=== PATIENT | female | born 1995 | race African-American/Black ===

== ENCOUNTER 2018-03-06 19:32 | Emergency (ER) | payer OTHER ==
[2018-03-06 20:23] LABS: #Eosinphils 0.2 thou/uL (0.0-0.7); #Lymphocytes 1.7 thou/uL (1.20-3.40); #Monocytes 0.5 thou/uL (0.11-0.59); #Neutrophils 2.1 thou/uL (1.40-6.50); %Basophils 0.8 % (0.0-1.0); %Eosinophils 3.6 % (0.0-10.0); %Monocytes 10.4 % (0.0-10.0); %Neutrophils 47.3 % (42.0-75.0); Hemoglobin 12.1 g/dL (12.0-16.0); Mean Corpuscular HGB CONC 32.9 g/dL (32.0-36.0); Mean Corpuscular Hemoglobin 26.4 pg (27.0-31.0); Mean Corpuscular Volume 80.1 fl (81.0-99.0); Mean Platelet Volume 8.4 fL (7.4-10.4); Platelet Count 283 thou/uL (130-400); RBC Distribution Width 13.2 % (11.5-14.5); White Blood Cell (WBC) Count 4.4 thou/uL (4.8-10.8)
[2018-03-06 20:31] LABS: BHCG - Serum Negative (NEGATIVE); Pregs Control Background? CLEAR/WHITE (CLR/WHITE); Pregs Control Bar Appear? YES (CONTROL BAR)
[2018-03-06 20:31] LABS: Bilirubin Negative (Negative); Blood, Urine Moderate (Negative); Clarity CLEAR (Clear); Glucose, Urine (Dipstick) Negative (Negative); Leukocyte Small (Negative); Nitrite Negative (Negative); Protein, Urine (Dipstick) Negative (Neg-Trace); Specific Gravity, Urine 1.021 (1.002-1.036)
[2018-03-06 20:33] LABS: Bacteria/HPF None Seen HPF (None Seen); Hyaline Casts/LPF 4-6 HYALINE CAST LPF (0-3 Hyaline); Pathc Cast-AUWi Flag 0.72 (0-2.49); RBC/HPF 0-3 HPF (0-3)
== END 2018-03-06 21:01 | disposition home or self-care (01) ==
LOC: ERS 19:32
DX: M54.5 Low back pain (principal); I45.10 Unspecified right bundle-branch block; I49.9 Cardiac arrhythmia, unspecified; F41.9 Anxiety disorder, unspecified; F31.9 Bipolar disorder, unspecified
CPT/HCPCS: 36415; 81003; 81015; 84703; 85025; 99283

== ENCOUNTER 2018-05-09 10:25 | Emergency (ER) | payer SELFPAY ==
[2018-05-09 10:56] LABS: Bacteria/HPF 3+ HPF (None Seen); Pathc Cast-AUWi Flag 1.16 (0-2.49)
[2018-05-09 10:57] LABS: Bilirubin Negative (Negative); Blood, Urine Negative (Negative); Glucose, Urine (Dipstick) Negative (Negative); Leukocyte Moderate (Negative); Nitrite Positive (Negative); Protein, Urine (Dipstick) Negative (Neg-Trace); Urobilinogen 0.2 mg/dL (0.2-1.0)
[2018-05-09 10:59] LABS: Clarity Hazy (Clear)
[2018-05-09 11:02] LABS: #Eosinphils 0.1 thou/uL (0.0-0.7); #Lymphocytes 1.6 thou/uL (1.20-3.40); #Monocytes 0.3 thou/uL (0.11-0.59); #Neutrophils 2.2 thou/uL (1.40-6.50); %Basophils 0.3 % (0.0-1.0); %Eosinophils 3.2 % (0.0-10.0); %Lymphocytes 37.8 % (21.0-51.0); %Monocytes 7.5 % (0.0-10.0); %Neutrophils 51.2 % (42.0-75.0); Hemoglobin 12.1 g/dL (12.0-16.0); Mean Corpuscular HGB CONC 32.8 g/dL (32.0-36.0); Mean Corpuscular Hemoglobin 26.6 pg (27.0-31.0); Mean Corpuscular Volume 81.3 fL (78.0-98.0); Mean Platelet Volume 8.5 fL (7.4-10.4); Platelet Count 248 thou/uL (130-400); RBC Distribution Width 13.1 % (11.5-14.5); Red Blood Cell (RBC) Count 4.53 mill/uL (4.20-5.40); White Blood Cell (WBC) Count 4.2 thou/uL (4.8-10.8)
[2018-05-09 11:03] LABS: Pregnancy Test - Urine (BHCG) Negative (Negative); Pregu Control Background? CLEAR/WHITE (CLR/WHITE); Pregu Control Bar Appear? YES (CONTROL BAR)
[2018-05-09 11:13] LABS: Hyaline Casts/LPF 0-3 HYALINE CAST LPF (0-3 Hyaline)
[2018-05-09 11:14] LABS: Trichomonas/HPF 1+ HPF (None Seen)
[2018-05-09 11:15] LABS: Squamous Epithelial 21-50 HPF (0-3)
[2018-05-09 11:23] LABS: ALT (SGPT) 10 U/L (8-55); AST (SGOT) 15 U/L (5-34); Albumin 4.4 g/dL (3.5-5.0); Alkaline Phosphatase 91 U/L (40-150); Anion Gap 6 mmol/L (10-20); BUN (Urea Nitrogen) 8 mg/dL (7.0-18.7); Bilirubin, Total 1.2 mg/dL (0.2-1.2); Calc. Creatinine Clearance 0 mL/min (70-130); Calcium 9.4 mg/dL (7.8-10.44); Carbon Dioxide 31 mmol/L (22-29); Chloride 105 mmol/L (98-107); Estimated GFR-MDRD Greater than 90; Globulin 3.7 g/dL (2.4-3.5); Glucose 103 mg/dL (70-105); Lipase 18 U/L (8-78); Potassium 3.6 mmol/L (3.5-5.1); Protein, Total 8.1 g/dL (6.0-8.3); Sodium 138 mmol/L (136-145)
[2018-05-09] MEDS ORDERED: cefTRIAXone\\ROCEPHIN 250 MG VIAL ONE (12:24)
[2018-05-09] MEDS ORDERED: Azithromycin 250 MG TAB ONE (12:24)
[2018-05-09] MEDS ORDERED: Lidocaine 1% PF 5 ML VIAL ONE (12:24)
[2018-05-09] MEDS ORDERED: Ketorolac Tromethamine 60 MG/2 ML VIAL ONE (12:52)
[2018-05-10 19:59] LABS: Chlamydia by PCR Not Detected (NotDetected); GC by PCR Not Detected (NotDetected)
== END 2018-05-09 12:59 | disposition home or self-care (01) ==
LOC: ERS 10:25
DX: N73.9 Female pelvic inflammatory disease, unspecified (principal); N30.00 Acute cystitis without hematuria; F41.9 Anxiety disorder, unspecified; F31.9 Bipolar disorder, unspecified; I49.9 Cardiac arrhythmia, unspecified; I45.10 Unspecified right bundle-branch block
CPT/HCPCS: 36415; 80053; 81003; 81015; 81025; 83690; 85025; 87480; 87491; 87510; 87591; 87660; 96372; J0696; J1885; J2001

== ENCOUNTER 2018-06-23 12:31 | Emergency (ER) | payer SELFPAY ==
[2018-06-23 13:11] LABS: Bilirubin Negative (Negative); Blood, Urine Negative (Negative); Clarity CLOUDY (Clear); Glucose, Urine (Dipstick) Negative (Negative); Leukocyte Small (Negative); Nitrite Negative (Negative); Protein, Urine (Dipstick) Negative (Neg-Trace); Specific Gravity, Urine 1.017 (1.002-1.036)
[2018-06-23 13:13] LABS: Pregnancy Test - Urine (BHCG) Negative (Negative); Pregu Control Background? CLEAR/WHITE (CLR/WHITE); Pregu Control Bar Appear? YES (CONTROL BAR); Specific Gravity 1.017 (1.002-1.036)
[2018-06-23 13:14] LABS: Bacteria/HPF None Seen HPF (None Seen); Pathc Cast-AUWi Flag 2.18 (0-2.49)
[2018-06-23 13:25] LABS: Hyaline Casts/LPF 0-3 HYALINE CAST LPF (0-3 Hyaline); Trichomonas/HPF 1+ HPF (None Seen)
[2018-06-23 13:39] LABS: #Basophils 0.1 thou/uL (0.0-0.2); #Eosinphils 0.1 thou/uL (0.0-0.7); #Lymphocytes 1.7 thou/uL (1.20-3.40); #Monocytes 0.4 thou/uL (0.11-0.59); #Neutrophils 1.9 thou/uL (1.40-6.50); %Basophils 1.4 % (0.0-1.0); %Eosinophils 3.2 % (0.0-10.0); %Monocytes 8.6 % (0.0-10.0); %Neutrophils 45.9 % (42.0-75.0); Hemoglobin 12.8 g/dL (12.0-16.0); Mean Corpuscular HGB CONC 32.4 g/dL (32.0-36.0); Mean Corpuscular Hemoglobin 26.9 pg (27.0-31.0); Mean Platelet Volume 8.6 fL (7.4-10.4); Platelet Count 311 thou/uL (130-400); RBC Distribution Width 12.8 % (11.5-14.5); Red Blood Cell (RBC) Count 4.74 mill/uL (4.20-5.40); White Blood Cell (WBC) Count 4.2 thou/uL (4.8-10.8)
[2018-06-23 14:13] LABS: ALT (SGPT) 10 U/L (8-55); AST (SGOT) 15 U/L (5-34); Albumin 4.5 g/dL (3.5-5.0); Alkaline Phosphatase 87 U/L (40-150); Anion Gap 11 mmol/L (10-20); BUN (Urea Nitrogen) 4 mg/dL (7.0-18.7); Bilirubin, Total 1.5 mg/dL (0.2-1.2); Calc. Creatinine Clearance 0 mL/min (70-130); Calcium 9.5 mg/dL (7.8-10.44); Carbon Dioxide 26 mmol/L (22-29); Chloride 106 mmol/L (98-107); Estimated GFR-MDRD Greater than 90; Globulin 3.8 g/dL (2.4-3.5); Glucose 95 mg/dL (70-105); Lipase 14 U/L (8-78); Potassium 3.9 mmol/L (3.5-5.1); Protein, Total 8.3 g/dL (6.0-8.3); Sodium 139 mmol/L (136-145)
[2018-06-23] MEDS ORDERED: Lidocaine 1% PF 5 ML VIAL ONE (14:41)
[2018-06-23] MEDS ORDERED: Ondansetron ODT 8 MG TAB ONE ×2 (14:41→14:46)
[2018-06-23] MEDS ORDERED: cefTRIAXone\\ROCEPHIN 250 MG VIAL ONE (14:41)
[2018-06-23] MEDS ORDERED: metroNIDAZOLE 250 MG TAB ONE (14:49)
[2018-06-23] MEDS ORDERED: Azithromycin 250 MG TAB ONE (15:00)
[2018-06-26 19:35] LABS: Chlamydia by PCR Not Detected (NotDetected); GC by PCR Not Detected (NotDetected)
== END 2018-06-23 16:20 | disposition home or self-care (01) ==
LOC: ERS 12:31
DX: A59.9 Trichomoniasis, unspecified (principal); F41.9 Anxiety disorder, unspecified; F31.9 Bipolar disorder, unspecified
CPT/HCPCS: 36415; 80053; 81003; 81015; 81025; 83690; 85025; 87480; 87491; 87510; 87591; 87660; 96372; J0696; J2001

== ENCOUNTER 2018-07-02 15:47 | Emergency (ER) | payer OTHER, SELFPAY ==
[2018-07-02 16:48] LABS: #Lymphocytes 1.4 thou/uL (1.20-3.40); #Monocytes 0.3 thou/uL (0.11-0.59); #Neutrophils 3.6 thou/uL (1.40-6.50); %Basophils 0.9 % (0.0-1.0); %Eosinophils 0.4 % (0.0-10.0); %Lymphocytes 26.5 % (21.0-51.0); %Monocytes 5.5 % (0.0-10.0); %Neutrophils 66.7 % (42.0-75.0); Hemoglobin 13.2 g/dL (12.0-16.0); Mean Corpuscular HGB CONC 32.2 g/dL (32.0-36.0); Mean Corpuscular Hemoglobin 26.4 pg (27.0-31.0); Mean Platelet Volume 8.9 fL (7.4-10.4); Platelet Count 274 thou/uL (130-400); RBC Distribution Width 12.8 % (11.5-14.5); Red Blood Cell (RBC) Count 5.01 mill/uL (4.20-5.40); White Blood Cell (WBC) Count 5.4 thou/uL (4.8-10.8)
[2018-07-02 18:07] LABS: Bilirubin Negative (Negative); Blood, Urine Negative (Negative); Clarity CLOUDY (Clear); Glucose, Urine (Dipstick) Negative (Negative); Leukocyte Negative (Negative); Nitrite Negative (Negative); Protein, Urine (Dipstick) Negative (Neg-Trace); Specific Gravity, Urine 1.018 (1.002-1.036); Urobilinogen 0.2 mg/dL (0.2-1.0); pH, Urine 5.5 (5.0-9.0)
[2018-07-02 20:10] LABS: Pregnancy Test - Urine (BHCG) Negative (Negative); Pregu Control Background? CLEAR/WHITE (CLR/WHITE); Pregu Control Bar Appear? YES (CONTROL BAR); Specific Gravity 1.018 (1.002-1.036)
== END 2018-07-02 20:49 | disposition home or self-care (01) ==
LOC: ERS 15:47
DX: R53.83 Other fatigue (principal)
CPT/HCPCS: 36415; 81003; 81025; 85025; 99284

== ENCOUNTER 2018-11-14 00:38 | Emergency (ER) | payer MEDICAID, OTHER ==
[2018-11-14 01:19] LABS: Pregnancy Test - Urine (BHCG) Negative (Negative); Pregu Control Background? CLEAR/WHITE (CLR/WHITE); Pregu Control Bar Appear? YES (CONTROL BAR); Specific Gravity 1.005 (1.002-1.036)
[2018-11-14 01:27] LABS: Amphetamine Not Detected (NotDetected); Barbiturates Screen Not Detected (NotDetected); Benzodiazepine Screen Not Detected (NotDetected); Bilirubin Negative (Negative); Blood, Urine Trace (Negative); Clarity CLEAR (Clear); Cocaine Metabolite Screen Not Detected (NotDetected); Glucose, Urine (Dipstick) Negative (Negative); Leukocyte Small (Negative); Medtox Control Line Valid? VALID (VALID); Medtox Reader # READER 4; Methadone Not Detected (NotDetected); Methamphetamine Not Detected (NotDetected); Nitrite Positive (Negative); Opiate Screen Not Detected (NotDetected); Oxycodone Screen Not Detected (NotDetected); Phencyclidine (PCP) Not Detected (NotDetected); Protein, Urine (Dipstick) Negative (Neg-Trace); Specific Gravity, Urine 1.003 (1.002-1.036); THC/Cannabinoid Screen Not Detected (NotDetected); Tricyclic Screen Not Detected (NotDetected); Urobilinogen 0.2 mg/dL (0.2-1.0)
[2018-11-14 01:30] LABS: Bacteria/HPF 2+ HPF (None Seen); Hyaline Casts/LPF 0-3 HYALINE CAST LPF (0-3 Hyaline); RBC/HPF 0-3 HPF (0-3); Squamous Epithelial 0-3 HPF (0-3)
[2018-11-14 01:31] LABS: Acetaminophen Less than 6.0 mcg/mL (10.0-30.0); Alcohol 109 mg/dL (Less than 10); Salicylate Less than 8.0 mg/dL (15.0-30.0)
--- NOTE | 2018-11-14 09:37 | RAD ---
FRONTAL VIEW CHEST: Date: 11/14/18 COMPARISON: 01/14/17. INDICATION: Dyspnea. FINDINGS: Lungs are clear. No effusion or pneumothorax. Cardiac silhouette and osseous structures are unremarka ble. IMPRESSION: No focal consolidation. POS: C
== END 2018-11-14 02:05 | disposition home or self-care (01) ==
LOC: ERS 00:38
DX: R06.02 Shortness of breath (principal); F10.129 Alcohol abuse with intoxication, unspecified; Y90.5 Blood alcohol level of 100-119 mg/100 ml; F31.9 Bipolar disorder, unspecified; F41.9 Anxiety disorder, unspecified
CPT/HCPCS: 36415; 71045; 80306; 80307; 81003; 81015; 81025; 93005

== ENCOUNTER 2019-04-18 10:01 | Emergency (ER) | payer OTHER ==
[2019-04-18] MEDS ORDERED: Ondansetron PF 4 MG/2 ML Vial ONE (11:18)
[2019-04-18 11:40] LABS: Anion Gap 15 mmol/L (10-20); BUN (Urea Nitrogen) 7 mg/dL (7.0-18.7); Calc. Creatinine Clearance 0 mL/min (70-130); Calcium 10.3 mg/dL (7.8-10.44); Carbon Dioxide 22 mmol/L (22-29); Chloride 102 mmol/L (98-107); Estimated GFR-MDRD Greater than 90; Glucose 84 mg/dL (70-105); Potassium 4.2 mmol/L (3.5-5.1); Sodium 135 mmol/L (136-145)
[2019-04-18 12:01] LABS: #Eosinphils 0.1 thou/uL (0.0-0.7); #Lymphocytes 1.5 thou/uL (1.20-3.40); #Monocytes 0.4 thou/uL (0.11-0.59); #Neutrophils 3.5 thou/uL (1.40-6.50); %Basophils 0.6 % (0.0-1.0); %Eosinophils 1.2 % (0.0-10.0); %Lymphocytes 26.4 % (21.0-51.0); %Monocytes 7.5 % (0.0-10.0); %Neutrophils 64.4 % (42.0-75.0); Hemoglobin 11.4 g/dL (12.0-16.0); Mean Corpuscular HGB CONC 32.1 g/dL (32.0-36.0); Mean Corpuscular Hemoglobin 26.3 pg (27.0-31.0); Mean Platelet Volume 8.6 fL (7.4-10.4); Platelet Count 255 thou/uL (130-400); RBC Distribution Width 13.1 % (11.5-14.5); Red Blood Cell (RBC) Count 4.34 mill/uL (4.20-5.40); White Blood Cell (WBC) Count 5.5 thou/uL (4.8-10.8)
[2019-04-18 13:13] LABS: Bacteria/HPF 3+ HPF (None Seen); Bilirubin Negative (Negative); Blood, Urine 1+ (Negative); Clarity Turbid (Clear); Glucose, Urine (Dipstick) Normal (Negative); Leukocyte 250 Leu/uL (Negative); Nitrite 2+ (Negative); Protein, Urine (Dipstick) 10 mg/dL (Neg-Trace); Squamous Epithelial 0-3 HPF (0-3); WBC/HPF 21-50 HPF (0-3)
== END 2019-04-18 15:10 | disposition home or self-care (01) ==
LOC: ERS 10:01
DX: O23.41 Unspecified infection of urinary tract in pregnancy, first trimester (principal); O21.9 Vomiting of pregnancy, unspecified; F31.9 Bipolar disorder, unspecified; F41.9 Anxiety disorder, unspecified; Z3A.01 Less than 8 weeks gestation of pregnancy
CPT/HCPCS: 36415; 80048; 81003; 81015; 85025; 87077; 87086; 87186; 96361; 96374; J2405

== ENCOUNTER 2019-06-19 15:14 | Emergency (ER) | payer OTHER ==
[2019-06-19] MEDS ORDERED: Ondansetron PF 4 MG/2 ML Vial ONE (16:11)
[2019-06-19] MEDS ORDERED: cefTRIAXone\\ROCEPHIN 1 GM VIAL ONE (16:14)
[2019-06-19 16:15] LABS: Hemoglobin 11.3 g/dL (12.0-16.0); Mean Corpuscular HGB CONC 34.5 g/dL (32.0-36.0); Mean Corpuscular Hemoglobin 27.8 pg (27.0-31.0); Mean Corpuscular Volume 80.7 fL (78.0-98.0); Mean Platelet Volume 8.9 fL (7.4-10.4); Platelet Count 219 thou/uL (130-400); Red Blood Cell (RBC) Count 4.04 mill/uL (4.20-5.40); White Blood Cell (WBC) Count 7.2 thou/uL (4.8-10.8)
[2019-06-19 16:29] LABS: Band 16 % (5-11); Lymphocytes 11 % (21-51); MDiff Complete? YES; Monocytes 10 % (0-10); Neutrophil 62 % (42-75); Platelet Morphology Comment Appears Adequate; RBC Morphology Normal; Reactive Lymphocytes 1 % (0-10)
[2019-06-19 16:37] LABS: ALT (SGPT) 12 U/L (8-55); AST (SGOT) 20 U/L (5-34); Albumin 3.8 g/dL (3.5-5.0); Alkaline Phosphatase 77 U/L (40-150); Anion Gap 15 mmol/L (10-20); BUN (Urea Nitrogen) 8 mg/dL (7.0-18.7); Bilirubin, Total 1.9 mg/dL (0.2-1.2); Calc. Creatinine Clearance 0 mL/min (70-130); Calcium 9.9 mg/dL (7.8-10.44); Carbon Dioxide 21 mmol/L (22-29); Chloride 98 mmol/L (98-107); Estimated GFR-MDRD Greater than 90; Globulin 4.7 g/dL (2.4-3.5); Glucose 83 mg/dL (70-105); Potassium 3.3 mmol/L (3.5-5.1); Protein, Total 8.5 g/dL (6.0-8.3); Sodium 131 mmol/L (136-145)
== END 2019-06-19 19:08 | disposition home or self-care (01) ==
LOC: ERS 15:14
DX: O99.512 Diseases of the respiratory system complicating pregnancy, second trimester (principal); O21.9 Vomiting of pregnancy, unspecified; J02.0 Streptococcal pharyngitis; O99.89 Other specified diseases and conditions complicating pregnancy, childbirth and the puerperium; B30.9 Viral conjunctivitis, unspecified; F31.9 Bipolar disorder, unspecified; F41.9 Anxiety disorder, unspecified; Z79.899 Other long term (current) drug therapy; Z3A.16 16 weeks gestation of pregnancy
CPT/HCPCS: 80053; 85025; 93005; 96361; 96365; 96375; J0696; J2405

== ENCOUNTER → 2019-09-15 | Day surgery (SDC) | payer OTHER ==
[~2019-09-15] MED LIST: hydrALAZINE 20 MG/ML VIAL SLOW IVP PRN
[2019-09-15 21:15] VITALS: BP 102/62; TEMP 98.3; BMI 22.1
--- NOTE | 2019-09-15 22:00 | PDOC.EVN ---
Event Note - Event Note Event Note: At bedside now. Q&A done with patient. Last delivery was at 34 weeks; 2014. Not on progesterone by her HX 102/62 83 afebrile Sono in process...awaiting transducer probe arrival for CX length
--- NOTE | 2019-09-15 22:07 | PDOC.EVN ---
Event Note - Event Note Event Note: FFN collected by me just now pre vag sono in case CX is less than 2.5cm
--- NOTE | 2019-09-15 22:10 | PDOC.EVN ---
Event Note - Event Note Event Note: CX transvag is without funneling, no shortening seen...3.2cm TCL. FFN not needed. I was present for the [facility] [place] for outpatient care Clinically stable.
--- NOTE | 2019-09-15 22:25 | ULT ---
LIMITED OB ULTRASOUND: 09/15/19 INDICATIONS: Assess cervical length. FINDINGS/IMPRESSION: Position: Vertex. Placenta: Posterior. DIANDRA: 9.1 cm. heart rate: 153 beats per minute. Cervical length: 3.2 cm. No funneling. Cervix appears closed. POS: OFF
--- NOTE | 2019-09-16 07:18 | HP ---
TIME OF EVALUATION: 2129. LOCATION: Labor and Delivery. REASON FOR EVALUATION: Pelvic pressure at 27 weeks and 5 days. This is a patient of a physician at [facility]. HISTORY OF PRESENT ILLNESS: This is a G4, P3 at 27 weeks and 5 days with a due date of December 09 with a history of 1 labor in the past, who sees a physician in [facility]. She complains of vaginal pressure, but denies contractions or leakage of fluid or vaginal bleeding. She denies any recent trauma. REVIEW OF SYSTEMS: Complete review of systems was completed and is otherwise negative unless specified in the HPI. PAST MEDICAL HISTORY: Negative. ALLERGIES: PENICILLIN AND TRAMADOL. PAST SURGICAL HISTORY: Includes a LEEP. SOCIAL HISTORY: Negative for tobacco, alcohol, and drug use. PHYSICAL EXAMINATION: VITAL SIGNS: She is afebrile and normotensive. The patient's blood pressure is 102/62, and her temperature is 98.8, her pulse is 83. GENERAL: Clinically, she is in no acute distress. ABDOMEN: Soft and nontender. VAGINAL EXAM: Pending a transvaginal ultrasound for cervical length. There is no gross evidence of leakage or vaginal bleeding. MONITOR: heart tones are in the 130s to 140s and are reactive for gestational age. No contractions are seen on toco dynamometer. ASSESSMENT: This is a patient at 27 weeks and 3 days with vaginal pressure, but no real contractions. PLAN: 1. heart tones are reassuring for gestational age. 2. I will order a transvaginal ultrasound and we will do an FFN per protocol if the cervical length is less than 2.5. 3. Await transvaginal ultrasound. If it is normal (greater than 2.5 cm), we can discharge home with reassurance. Job ID: [id number]
== END | disposition home or self-care (01) ==
LOC: L&D/OP 20:32
PROVIDERS: ATTEND Obstetrics & Gynecology
DX: O99.89 Other specified diseases and conditions complicating pregnancy, childbirth and the puerperium (principal); R10.2 Pelvic and perineal pain; Z3A.27 27 weeks gestation of pregnancy; Z88.0 Allergy status to penicillin; Z88.5 Allergy status to narcotic agent
CPT/HCPCS: 76856; 99282

== ENCOUNTER 2019-09-27 06:35 | Day surgery (SDC) | payer OTHER ==
[2019-09-27 07:12] VITALS: BP 117/60; TEMP 98.2; BMI 22.3
[2019-09-27] MEDS ORDERED: hydrALAZINE 20 MG/ML VIAL SLOW IVP PRN (07:26)
[2019-09-27] MEDS ORDERED: Acetaminophen 500 MG TAB PO SCH (07:45)
--- NOTE | 2019-09-27 07:53 | HP ---
This is a patient of the [facility] physician. CHIEF COMPLAINT: Pelvic pressure at 29 weeks. HISTORY OF PRESENT ILLNESS: This is a 24-year-old G4, P3 with a history of 2 full-term deliveries and one (with last) who is currently not on progesterone, here for pelvic pressure. She denies vaginal bleeding or leakage of fluid. She has good movement. She was last seen on 09/15 with a transvaginal ultrasound performed showing a cervical length of 3.2 cm. REVIEW OF SYSTEMS: Complete review of systems was checked and is otherwise negative unless specified in the HPI. PAST MEDICAL HISTORY: Questionable heart palpitations but she does not see a communications lead. PAST SURGICAL HISTORY: Includes a LEEP. OBSTETRICS HISTORY: One prior , no history. MEDICATIONS: vitamin. ALLERGIES: PENICILLIN AND TRAMADOL. PHYSICAL EXAMINATION: VITAL SIGNS: She is afebrile and normotensive. GENERAL: She is in no acute distress. ABDOMEN: Soft and nontender. PELVIC: Currently deferred as we are waiting for a transvaginal ultrasound. There is no gross evidence of vaginal bleeding or leakage of fluid. monitor, heart tones are in the 130s to 140s and are compatible with a 29 week gestation, and there are no decelerations. There are no contractions on tocodynamometer. Interventions ordered. I have ordered a transvaginal ultrasound and a VPIII. I have also asked to collect a fibronectin, but we will not send until we get the transvaginal ultrasound report. ASSESSMENT: This is a 24-year-old G4, P3, at 29 weeks with pelvic pressure, not otherwise specified, whose last transvaginal ultrasound on 09/15 was 3.2 cm. PLAN: 1. Transvaginal ultrasound for cervical length will be ordered now. 2. If it is less than 2.5 cm, we will order FFN. 3. No overt evidence of labor at this time or rupture of membranes. 4. VPIII collected for routine evaluation. Job ID: [id number]
--- NOTE | 2019-09-27 08:05 | PDOC.EVN ---
Event Note - Event Note Event Note: Cx 3.6cm awaiting VP3
--- NOTE | 2019-09-27 08:37 | ULT ---
ULTRASOUND PELVIC TRANSVAGINAL: HISTORY: Evaluate cervical length. COMPARISON: None. FINDINGS: Real-time, piper scale, color Doppler, and spectral analysis of the pelvis performed transabdominal an d transvaginal approach. The cervix is closed and measures approximately 3.5 cm in length. The position is vertex. Placenta is posterior. The placenta does not descend across the inter nal os. The heart rate is documented at 144 b.p.m. IMPRESSION: Closed cervix measuring 3.5 cm in length. POS: [facility]
--- NOTE | 2019-09-27 09:12 | PDOC.EVN ---
Event Note - Event Note Event Note: Received report from Dr. Carrasquillo. 28 yo at 29 weeks with pelvic pressure. No evidence of PTL, CL>3 cm. VP3 returns + for BV and Modesta. Rx. for Flagyl 250 TID x 7days and Diflucan 150 mg PO x1 given. PTL precautions reviewed, RTC S&W as scheduled for F/U.
== END 2019-09-27 09:41 | disposition home health service (06) ==
LOC: L&D/OP 06:35
PROVIDERS: ATTEND Obstetrics & Gynecology
DX: O99.89 Other specified diseases and conditions complicating pregnancy, childbirth and the puerperium (principal); R10.2 Pelvic and perineal pain; O09.213 Supervision of pregnancy with history of pre-term labor, third trimester; Z3A.29 29 weeks gestation of pregnancy; Z88.0 Allergy status to penicillin; Z88.5 Allergy status to narcotic agent
CPT/HCPCS: 76856; 87480; 87510; 87660; 99283

== ENCOUNTER 2019-11-06 12:46 | Day surgery (SDC) | payer OTHER ==
[2019-11-06 13:15] VITALS: BP 103/61; TEMP 98.2
[2019-11-06 13:17] VITALS: BMI 23.3
[2019-11-06] MEDS ORDERED: hydrALAZINE 20 MG/ML VIAL SLOW IVP PRN (14:02)
[2019-11-06 15:02] LABS: Bilirubin Negative (Negative); Blood, Urine 1+ (Negative); Clarity Clear (Clear); Glucose, Urine (Dipstick) Normal (Negative); Leukocyte 250 Leu/uL (Negative); Nitrite Negative (Negative); Protein, Urine (Dipstick) 10 mg/dL (Neg-Trace); RBC/HPF Greater than 50 HPF (0-3); Squamous Epithelial 0-3 HPF (0-3); Urobilinogen 6 mg/dL (Less than 2)
[2019-11-06 15:16] LABS: Bacteria/HPF 2+ HPF (None Seen)
[2019-11-06 15:17] LABS: Urine Culture Reflex Yes Yes
--- NOTE | 2019-11-06 15:44 | PDOC.FPROB ---
FMR OB H&P: HPI - History of Present Illness Chief Complaint: Back Pain/Pelvic Pressure Indentification: 24 yo @ 35 weeks History of Present Illness: Patient is a 24 year old female @ 35 wks presenting with 8/10 sharp back pain that began this morning at 10. The pain is stabbing and does not radiate. The pain is constant and is not exacerbated by movement or position. She also complains of cervical pain that she describes as constant pressure. Nothing has made this pain better or worse. She also endorses unilateral headache and dizziness. She denies and bright red blood from vagina but does endorse pinkish discharge on underwear this morning. She thinks that baby is moving less than he was yesterday but does report some FM. Denies any burning when peeing or increased frequency. Denies any LOF. Pt took some keflex abx for a tooth infection a week ago. Did not complete the entire course. Primary Care Physician: Dr. 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 Sickle cell trait Psych: Bipolar Disorder, Depression and Anxiety - OB History OB History: OB history: Followed by Dr. Gaytan at [facility]. Last seen on of this week. Said on exam she was 2 cm dilated and was aiming for induction on December 05. There have been no problems with this . Past deliveries include 1 and 2 term, all . No complications reported in previous deliveries. 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 Normal pap this past December which she reports was normal. Negative testing with Dr. Gaytan for STIs including Gonorrhea, chlamydia and syphilis. - Surgical History Sx History: PSH: Leep procedure 2016 - Social History Social History: Social: Not currently working. Lives with grandfather who is currently in rehab. She says father of the child is involved. Denies any smoking, alcohol or illicit drug use. - Family History Family History: Family: Dad has heart condition that required surgery in 2018. Mom has sickle cell trait and anemia. Grandmother has diabetes. FMR OB H&P: Medications - Current Home Medications: Medication Instructions Recorded Confirmed Type 21/Iron Fu/Folic Acid 1 tablet PO DAILY 05/26/15 11/06/19 History [ Complete Caplet] Nitrofurantoin Monohyd/M-Cryst 100 mg PO BID #14 cap 11/06/19 Rx [Macrobid] Allergies/Adverse Reactions: Allergies Allergy/AdvReac Type Severity Reaction Status Date / Time Penicillins Allergy Rash Verified 07/18/15 11:15 tramadol Allergy Rash Verified 09/15/19 21:06 FMR OB H&P: ROS - Review of Systems General: denies: fever/chills, weight/appetite/sleep changes Eyes: denies: vision changes ENT: denies: nasal congestion, rhinorrhea, sinus pain/pressure Cardiovascular: denies: chest pain Respiratory: denies: cough, congestion, shortness of breath Gastrointestinal: denies: abdominal pain, cramping, nausea, vomiting, diarrhea, constipation Genitourinary (Female): reports: vaginal discharge (pink discharge). denies: incontinence, dysuria, vaginal bleeding, contractions Musculoskeletal: reports: pain (Reports back pain) Neurologic: denies: numbness, seizures Integumentary: denies: itching, rash Breast: denies: lumps, bumps Psychological: reports: depression, anxiety. denies: episodes of josé luis, hallucinations FMR OB H&P: Vital Signs - Maternal Vital signs: Vital Signs - First Documented Temp Pulse Resp BP 98.2 F 76 18 103/61 11/06/19 13:05 11/06/19 13:05 11/06/19 13:05 11/06/19 13:05 - Heart Tones Baseline: 140 Variability: moderate Acceleration: present Deceleration: absent Category: category 1 [place] contractions every: occasional FMR OB H&P: Physical Exam - Physical Exam General: NAD, awake, alert and oriented HEENT: normocephalic and atraumatic, grossly normal vision, grossly normal hearing Neck: supple, FROM Heart: RRR, normal S1/S2, no murmurs/rubs/gallops, pulses present, no edema General: CTAB, no respiratory distress, good air movement, no rales/rhonchi, no wheezing Abdomen: soft, gravid, non-tender, bowel sound present, other (No CVA tenderness to palpation) Musculoskeletal: normal gait and station, pulses present Neurological: sensation to pain,touch and proprioception grossly normal Skin: no rash, good tugor Lymphatic: no unusual bruising or bleeding Psychiatric: intact recent and remote memory, normal mood and affect - Pelvic Exam Vulva: normal hair distribution, no lesions, no discharge SVE: /-1 FMR OB H&P: Results - Labs Lab results: Laboratory Results - last 24 hr 11/06/19 14:40 Urine Color Yellow Urine Clarity Clear Urine pH 7.0 Ur Specific [place] 1.014 Urine Protein 10 Urine Glucose (UA) Normal Urine Ketones Negative Urine Blood 1+ A Urine Nitrite Negative Urine Bilirubin Negative Urine Urobilinogen 6 A Ur Leukocyte Esterase 250 A Urine RBC Greater than 50 A Urine WBC 7-10 A Ur Squamous Epith Cells 0-3 Amorphous Crystals 1+ A Urine Bacteria 2+ A Urine Culture Reflexed Yes A FMR OB H&P: A/P - Problem List (1) Status: Acute Qualifiers: Weeks of gestation: 35 weeks Qualified Code(s): Z3A.35 - 35 weeks gestation of (2) Bipolar 1 disorder, depressed Status: Acute (3) UTI (urinary tract infection) Status: Acute Disposition: 24 yo @ 35 weeks came in with Back pain and pelvic pain. Pt U/A was positive for blood, LE, bacteria, and WBC. Will be sent for culture. At this time pain is likely UTI related. Cervical check was which is what she said she was when Dr. Gaytan checked her. UTI -px macrobid for tx at this time as had recently taken keflex last week. -Advised to drink plenty of fluids. -Advised to take tylenol scheduled for pain. Dispo: D/c home. Advised to f/u with Dr. Gaytan next week for OB f/u. Discussed ER precautions and advised if pain doesn't improve with abx and tylenol and starts to have more contractions to present back to L&D. Discussion: Date/Time: 11/06/19 3600 This H&P was discussed with [] and [] who agree with the above documentation and plan. Addendum - Attending - Attending Attestation Date/Time: 11/06/19 2291 I personally evaluated the patient and discussed the management with Dr. Klein. I agree with the History, Examination, Assessment and Plan documented above.
== END 2019-11-06 16:05 | disposition home health service (06) ==
LOC: L&D/OP 12:46
PROVIDERS: ATTEND Obstetrics & Gynecology
DX: O23.43 Unspecified infection of urinary tract in pregnancy, third trimester (principal); O99.343 Other mental disorders complicating pregnancy, third trimester; F31.9 Bipolar disorder, unspecified; F41.9 Anxiety disorder, unspecified; O99.013 Anemia complicating pregnancy, third trimester; D57.3 Sickle-cell trait; Z3A.35 35 weeks gestation of pregnancy; Z88.0 Allergy status to penicillin; Z88.5 Allergy status to narcotic agent
CPT/HCPCS: 81001; 87077; 87086

== ENCOUNTER 2019-12-07 06:36 | Emergency (ER) | payer OTHER | END 2019-12-07 06:55 | disposition home or self-care (01) | LOC: ERS 06:36 | DX: K08.89 Other specified disorders of teeth and supporting structures (principal); F41.9 Anxiety disorder, unspecified; F31.9 Bipolar disorder, unspecified; I45.10 Unspecified right bundle-branch block | CPT/HCPCS: 99281 ==

== ENCOUNTER 2020-07-28 15:01 | Emergency (ER) | payer OTHER ==
[2020-07-28 16:05] LABS: Bilirubin Negative (Negative); Blood, Urine Negative (Negative); Clarity Turbid (Clear); Glucose, Urine (Dipstick) Normal (Negative); Ketone, Urine Negative (Negative); Leukocyte 75 Leu/uL (Negative); Nitrite 2+ (Negative); Protein, Urine (Dipstick) Negative (Neg-Trace); RBC/HPF 0-3 HPF (0-3); Specific Gravity, Urine 1.019 (1.002-1.036); Squamous Epithelial 0-3 HPF (0-3); Urobilinogen Normal mg/dL (Less than 2); pH, Urine 6.5 (5.0-9.0)
[2020-07-28 16:07] LABS: Pregnancy Test - Urine (BHCG) Negative (Negative); Pregu Control Background? CLEAR/WHITE (CLR/WHITE); Pregu Control Bar Appear? YES (CONTROL BAR); Specific Gravity 1.019 (1.002-1.036)
[2020-07-28 16:12] LABS: Bacteria/HPF 2+ HPF (None Seen)
== END 2020-07-28 16:28 | disposition short-term general hospital (02) ==
LOC: ERS 15:01
DX: N30.01 Acute cystitis with hematuria (principal); F31.9 Bipolar disorder, unspecified; F41.9 Anxiety disorder, unspecified
CPT/HCPCS: 81003; 81015; 81025; 99283

== ENCOUNTER 2021-02-12 13:03 | Emergency (ER) | payer OTHER ==
[2021-02-12 14:04] LABS: Hemoglobin 10.4 g/dL (12.0-16.0); Mean Corpuscular HGB CONC 30.7 g/dL (32.0-36.0); Mean Corpuscular Hemoglobin 24.9 pg (27.0-31.0); Mean Platelet Volume 8.8 fL (7.4-10.4); Platelet Count 265 thou/uL (130-400); Red Blood Cell (RBC) Count 4.17 mill/uL (4.20-5.40); White Blood Cell (WBC) Count 10.6 thou/uL (4.8-10.8)
[2021-02-12 14:20] LABS: ALT (SGPT) 8 U/L (8-55); AST (SGOT) 12 U/L (5-34); Albumin 3.6 g/dL (3.5-5.0); Alkaline Phosphatase 98 U/L (40-110); Anion Gap 15 mmol/L (10-20); BUN (Urea Nitrogen) 4 mg/dL (7.0-18.7); Bilirubin, Total 1.7 mg/dL (0.2-1.2); Calc. Creatinine Clearance 0 mL/min (70-130); Calcium 9.5 mg/dL (7.8-10.44); Carbon Dioxide 24 mmol/L (22-29); Chloride 97 mmol/L (98-107); Globulin 4.6 g/dL (2.4-3.5); Glucose 82 mg/dL (70-105); Lipase 5 U/L (8-78); Potassium 3.7 mmol/L (3.5-5.1); Protein, Total 8.2 g/dL (6.0-8.3); Sodium 132 mmol/L (136-145)
[2021-02-12 14:21] LABS: Hypochromia SLIGHT = 6-15 cells (100X) (0-5/hpf); Lymphocytes 16 % (21-51); MDiff Complete? YES; Monocytes 3 % (0-10); Neutrophil 81 % (42-75); Platelet Morphology Comment Appears Adequate; Polychromasia SLIGHT = 2-3 cells (100X) (0-2/hpf)
[2021-02-12 14:37] LABS: Bilirubin Negative (Negative); Blood, Urine Negative (Negative); Clarity Turbid (Clear); Glucose, Urine (Dipstick) Normal (Negative); Ketone, Urine Greater than 150 mg/dL (Negative); Leukocyte 500 Leu/uL (Negative); Nitrite Negative (Negative); Protein, Urine (Dipstick) 30 mg/dL (Neg-Trace); RBC/HPF 0-3 HPF (0-3); Squamous Epithelial 21-50 HPF (0-3); Urobilinogen 12 mg/dL (Less than 2); WBC/HPF Greater than 50 HPF (0-3)
[2021-02-12 14:38] LABS: Bacteria/HPF 1+ HPF (None Seen)
[2021-02-12] MEDS ORDERED: Metoclopramide HCl 10 MG/2 ML VIAL ONE (15:01)
== END 2021-02-12 16:52 | disposition home or self-care (01) ==
LOC: ERS 13:03
DX: O23.12 Infections of bladder in pregnancy, second trimester (principal); N30.00 Acute cystitis without hematuria; O21.9 Vomiting of pregnancy, unspecified; Z3A.20 20 weeks gestation of pregnancy
CPT/HCPCS: 36415; 80053; 81003; 81015; 83690; 85025; 96365; J2765

== ENCOUNTER 2023-11-28 11:32 | Emergency (ER) | payer SELFPAY ==
[2023-11-28] MEDS ORDERED: Lidocaine 1% MPF 2 ML VIAL ONE (15:05)
[2023-11-28] MEDS ORDERED: Azithromycin 250 MG TAB ONE (15:05)
[2023-11-28] MEDS ORDERED: cefTRIAXone (ROCEPHIN) 250 MG VIAL ONE (15:05)
[2023-11-28 15:17] LABS: Bilirubin Negative (Negative); Blood, Urine Negative (Negative); CAUTI Indications for Culture Dysuria,urgency,freq; Clarity Clear (Clear); Glucose, Urine (Dipstick) Greater than 1000 mg/dL (Negative); Ketone, Urine Negative (Negative); Leukocyte 250 Leu/uL (Negative); Nitrite Negative (Negative); Protein, Urine (Dipstick) Negative (Neg-Trace); RBC/HPF 0-3 HPF (0-3); Specific Gravity, Urine 1.027 (1.002-1.036); Squamous Epithelial 0-3 HPF (0-3); Urobilinogen Normal mg/dL (Less than 2)
[2023-11-28 15:18] LABS: Pregnancy Test - Urine (BHCG) Negative (Negative)
[2023-11-28 15:19] LABS: Bacteria/HPF 1+ HPF (None Seen); Pregu Control Background? CLEAR/WHITE (CLR/WHITE); Pregu Control Bar Appear? YES (CONTROL BAR); Specific Gravity 1.027 (1.002-1.036); Urine Culture Reflex No No
[2023-11-30 06:10] LABS: Chlamydia by PCR, Vaginal Swab Not Detected (NotDetected); GC by PCR, Vaginal Swab Not Detected (NotDetected)
== END 2023-11-28 15:25 | disposition home or self-care (01) ==
LOC: ERS 11:32
DX: N76.0 Acute vaginitis (principal); E11.9 Type 2 diabetes mellitus without complications; Z20.2 Contact with and (suspected) exposure to infections with a predominantly sexual mode of transmission
CPT/HCPCS: 81001; 81025; 87480; 87491; 87510; 87591; 87660; 96372; 99284; J0696

== ENCOUNTER 2023-12-24 12:02 | Outpatient (CLI) | payer OTHER | END 2023-12-24 12:03 | disposition home or self-care (01) | LOC: BICRAD 12:02 | PROVIDERS: ATTEND Preventive Medicine Occupational Medicine | DX: Z02.71 Encounter for disability determination (principal); M25.561 Pain in right knee; M54.50 Low back pain, unspecified | CPT/HCPCS: 72100 ==

== ENCOUNTER 2024-08-19 20:58 | Emergency (ER) | payer OTHER ==
[2024-08-19 21:53] LABS: Bilirubin Negative (Negative); Blood, Urine Negative (Negative); CAUTI Indications for Culture Dysuria,urgency,freq; Clarity Clear (Clear); Glucose, Urine (Dipstick) Greater than 1000 mg/dL (Negative); Ketone, Urine Negative (Negative); Leukocyte 25 Leu/uL (Negative); Nitrite Negative (Negative); Protein, Urine (Dipstick) Negative (Neg-Trace); RBC/HPF 0-3 HPF (0-3); Specific Gravity, Urine 1.027 (1.002-1.036); Squamous Epithelial 0-3 HPF (0-3); Urobilinogen Normal mg/dL (Less than 2)
[2024-08-19 22:01] LABS: Actual Bicarbonate (HCO3v) 24.9 mEq/L (22-28); Base Excess -0.6 mEq/L (-2.0 to +3.0); Calcium, Ionized (venous) 1.12 mmol/L (1.16-1.32); Chloride (VBG) 94 mmol/L (98-106); Hematocrit-VBG 39 % (36.0-47.0); Hemoglobin (Hb) 13.4 g/dL (11.7-15.5); Potassium (VBG) 4.47 mmol/L (3.70-5.30); Sodium 133 mmol/L (133-146); pH (venous) 7.367 (7.32-7.43)
[2024-08-19 22:04] LABS: Bacteria/HPF 1+ HPF (None Seen)
[2024-08-19 22:05] LABS: Urine Culture Reflex No No
[2024-08-19] MEDS ORDERED: Morphine 4 MG/ML VIAL ONE (22:10)
[2024-08-19] MEDS ORDERED: Ondansetron PF 4 MG/2 ML Vial ONE (22:10)
[2024-08-19 22:11] LABS: BHCG - Serum Negative (NEGATIVE); Pregs Control Background? CLEAR/WHITE (CLR/WHITE); Pregs Control Bar Appear? YES (CONTROL BAR)
[2024-08-19 22:15] LABS: Troponin I Less than 0.010 ng/mL (< 0.028)
[2024-08-19 22:31] LABS: #Basophils 0.03 10x3/uL (0.0-0.2); %Basophils 0.5 % (0.0-1.0); %Lymphocytes 34.3 % (21.0-51.0); %Monocytes 7.9 % (0.0-10.0); Hematocrit 37.1 % (36.0-47.0); Hemoglobin 12.2 g/dL (12.0-16.0); Mean Corpuscular HGB CONC 32.9 g/dL (32.0-36.0); Mean Corpuscular Hemoglobin 25.2 pg (27.0-31.0); Mean Corpuscular Volume 76.5 fL (78.0-98.0); Mean Platelet Volume 11.4 fL (7.4-10.4); Platelet Count 256 10x3/uL (130-400); RBC Distribution Width 13.2 % (11.5-14.5); Red Blood Cell (RBC) Count 4.85 mill/uL (4.20-5.40)
[2024-08-19 22:39] LABS: ALT (SGPT) 17 U/L (8-55); AST (SGOT) 26 U/L (5-34); Albumin 3.5 g/dL (3.5-5.0); Alkaline Phosphatase 152 U/L (40-110); Anion Gap 19 mmol/L (10-20); BUN (Urea Nitrogen) 7 mg/dL (7.0-18.7); Bilirubin, Total 0.9 mg/dL (0.2-1.2); Calc. Creatinine Clearance 0 mL/min (70-130); Calcium 9.2 mg/dL (7.8-10.44); Carbon Dioxide 19 mmol/L (22-29); Chloride 95 mmol/L (98-107); Estimated GFR 87; Globulin 5.3 g/dL (2.4-3.5); Glucose 655 mg/dL (70-105); Lipase 14 U/L (8-78); Magnesium 1.8 mg/dL (1.6-2.6); Potassium 4.7 mmol/L (3.5-5.1); Protein, Total 8.8 g/dL (6.0-8.3); Sodium 128 mmol/L (136-145)
[2024-08-19] MEDS ORDERED: Ketorolac Tromethamine 30 MG (1 mL) VIAL ONE (22:48)
[2024-08-20] MEDS ORDERED: Insulin Regular, Human 100 UNIT/ML 10 ML VIAL ONE (00:18)
[2024-08-20 01:17] LABS: Lactic Acid 0.79 mmol/L (0.5-2.2)
== END 2024-08-20 01:56 | disposition home or self-care (01) ==
LOC: ERS 20:58
DX: E11.65 Type 2 diabetes mellitus with hyperglycemia (principal); E86.0 Dehydration; R11.0 Nausea; E11.40 Type 2 diabetes mellitus with diabetic neuropathy, unspecified; Z79.4 Long term (current) use of insulin
CPT/HCPCS: 36416; 71045; 80053; 81001; 82010; 82805; 83605; 83690; 83735; 84100; 84484; 84703; 85025; 87428; 93005; 96361; 96374; 96375; J1815; J1885; J2272; J2405